=== PATIENT | female | born 1990 | race Two or more races ===

== ENCOUNTER 2021-08-03 17:35 | Emergency (ER) | payer SELFPAY ==
[~2021-08-03] VITALS: Ht 157.5 cm; Wt 72.6 kg
[2021-08-03] MEDS ORDERED: KETOROLAC TROMETH 30 MG/ML 1ML VIAL IV ONE (19:30)
[2021-08-03] MEDS ORDERED: chlordiazePOXIDE HCL 5 MG CAP PO ONE (19:30)
[2021-08-03] MEDS ORDERED: FAMOTIDINE 20 MG TAB PO ONE (19:30)
[2021-08-03] MEDS ORDERED: IOHEXOL 350 MG/ML 100ML IJ ONE (19:48)
[2021-08-03 20:04] LABS: Basophils # (auto) 0.1 10 ^3/uL (0-0.2); Basophils % (auto) 0.9 % (0.0-2.0); Eosinophils # (auto) 0.3 10 ^3/uL (0-0.8); Eosinophils % (auto) 3.5 % (0.0-7.0); Hematocrit 38.7 % (36.0-46.0); Hemoglobin 12.9 g/dL (12.2-16.2); Lymphocytes # (auto) 3.8 10 ^3/uL (0.4-5.4); Lymphocytes % (auto) 45.2 % (10.0-50.0); Mean Corpuscular Hemoglobin 29.4 pg (28.0-32.0); Mean Corpuscular Hgb Conc. 33.4 g/dL (32.0-36.0); Monocytes # (auto) 0.5 10 ^3/uL (0-1.3); Monocytes % (auto) 5.6 % (0.0-12.0); Neutrophils # (auto) 3.7 10 ^3/uL (1.6-8.6); Neutrophils % (auto) 44.8 % (37.0-80.0); Nucleated Red Blood Cells % 0.1 %; Red Blood Cells 4.39 10^6/uL (4.0-5.20); White Blood Cell 8.3 10^3/uL (4.4-10.8)
[2021-08-03 20:24] LABS: Albumin 4.2 g/dL (3.4-5.0); BUN/Creatinine Ratio 16.7; Calcium 8.6 mg/dL (8.5-10.1); Potassium 4.1 mmol/L (3.5-5.1)
[2021-08-03 20:26] LABS: Bilirubin, Total 0.6 mg/dL (0.2-1.0); Total Protein 7.3 g/dL (6.4-8.2)
[2021-08-03] MEDS ORDERED: ALUM & MAG HYDROX-SIMETH LIQ(MAALOX) 30 ML PO ONE (20:45)
[2021-08-03] MEDS ORDERED: TETANUS-DIPTH-ACEL PERTUSSIS 0.5ML SYR Tdap IM ONE (21:15)
[2021-08-03 22:51] VITALS: BP 134/44
== END 2021-08-03 22:54 | disposition home or self-care (01) ==
LOC: ER 17:35
DX: F10.129 Alcohol abuse with intoxication, unspecified (principal); M79.642 Pain in left hand; Y90.9 Presence of alcohol in blood, level not specified; V89.2XXA Person injured in unspecified motor-vehicle accident, traffic, initial encounter; Y93.89 Activity, other specified; Y92.89 Other specified places as the place of occurrence of the external cause; Y99.8 Other external cause status
CPT/HCPCS: 36415; 70450; 71260; 72125; 72128; 72131; 73130; 74177; 80053; 84702; 85025; 96374; 99285; J1885; Q9967; 90471